=== PATIENT | female | born 1980 | race Caucasian/White ===

== ENCOUNTER 2022-01-03 10:29 | Emergency (ER) | payer MEDICAID, OTHER ==
[~2022-01-03] VITALS: Ht 157.5 cm; Wt 59.1 kg
[~2022-01-03 10:29] MED LIST: ACET-784 PO; DOXY50CA2 PO; METR250T PO
[2022-01-03 11:08] LABS: EOSINOPHILS % (AUTO) 1.6 % (1.0-6.0); HEMATOCRIT 38.9 % (36-46); HEMOGLOBIN 13.2 g/dL (12.0-16.0); LYMPHOCYTES # (AUTO) 1.7 K/uL (1.0-4.8); LYMPHOCYTES % (AUTO) 28.8 % (22.0-44.0); MEAN CORPUSCULAR HEMOGLOBIN 30.5 pg (26.0-34.0); MEAN CORPUSCULAR VOLUME 90 fL (80-100); MONOCYTES # (AUTO) 0.4 K/uL (0.1-1.0); MONOCYTES % (AUTO) 7.6 % (2.0-9.0); NEUTROPHILS # (AUTO) 3.6 K/uL (1.8-7.7); PLATELET COUNT (AUTO) 276 K/uL (150-450); RED BLOOD CELL COUNT(AUTO) 4.34 MIL/uL (4.00-5.20); RED CELL DISTRIBUTION WIDTH 12.9 % (11.5-14.5)
[2022-01-03 11:27] LABS: ANION GAP 10 mmol/L (8-16); CALCIUM, TOTAL 8.7 mg/dL (8.8-10.5); CARBON DIOXIDE 25 mmol/L (22-29); CHLORIDE 106 mmol/L (98-107); CREATININE 0.47 mg/dL (0.60-1.30); GLOMERULAR FILTR. RATE CALC > 60 mL/min (>60); GLUCOSE,RANDOM 92 mg/dL (70-110); SODIUM SERUM 141 mmol/L (136-145); UREA NITROGEN, BLOOD 10 mg/dL (7-18)
[2022-01-03] MEDS ORDERED: SODIUM CHLORIDE 0.9% 1,000 ML IV ONE (11:30)
[2022-01-03] MEDS ORDERED: ACETAMINOPHEN 325 MG TABLET PO ONE (11:30)
[2022-01-03] MEDS ORDERED: ONDANSETRON HCL 4 MG/2 ML VIAL IVP ONE (11:30)
[2022-01-03 11:35] LABS: ALANINE AMINOTRANSFERASE 16 U/L (12-78); ALBUMIN 3.8 g/dL (3.4-5.0); ALKALINE PHOSPHATASE 58 U/L (46-116); ASPARTATE AMINOTRANSFERASE 14 U/L (15-37); HCG,QUANTITATIVE < 1 mIU/mL (0-6); LIPASE 65 U/L (73-393)
[2022-01-03] MEDS ORDERED: SODIUM CHLORIDE 0.9% 100 ML ONE (11:38)
[2022-01-03] MEDS ORDERED: IOHEXOL 350 MG/ML 75 ML VIAL ONE (11:38)
[2022-01-03 12:18] LABS: APPEARANCE,URINE HAZY (CLEAR); BILIRUBIN,URINE NEGATIVE (NEGATIVE); GLUCOSE, URINE (UA) NEGATIVE (NEGATIVE); KETONES,URINE NEGATIVE (NEGATIVE); LEUKOCYTE ESTERASE ,URINE NEGATIVE (NEGATIVE); NITRATE,URINE NEGATIVE (NEGATIVE); OCCULT BLOOD,URINE MODERATE (NEGATIVE); PH,URINE 6.5 (5.0-8.0); PROTEIN,URINE TRACE mg/dL (NEGATIVE); SPECIFIC GRAVITIY, URINE 1.022 (1.003-1.030); UROBILINOGEN,URINE <=1.0 mg/dL (<=1.0)
[2022-01-03 12:32] LABS: WBC,URINE None Seen /HPF (0-5)
[2022-01-03 12:33] LABS: BACTERIA,URINE Many /HPF (None Seen); SQUAMOUS EPITHELIAL CELL,UR Moderate /LPF (None Seen)
[2022-01-03 15:25] VITALS: BP 114/74
== END 2022-01-03 15:26 | disposition home or self-care (01) ==
LOC: EMS 10:29
DX: R10.32 Left lower quadrant pain (principal); R10.2 Pelvic and perineal pain; F12.10 Cannabis abuse, uncomplicated; E84.9 Cystic fibrosis, unspecified; Z90.710 Acquired absence of both cervix and uterus
CPT/HCPCS: 99285; 74177; 96374; 76856; 96361; 80053; 81001; 83690; 84702; 85025; 36415; 87086; J2405; Q9967; J7030; J7050

== ENCOUNTER 2024-08-22 21:59 | Emergency (ER) | payer MEDICAID ==
[~2024-08-22] VITALS: Ht 157.5 cm; Wt 51.4 kg
[~2024-08-22 21:59] MED LIST changes: -DOXY50CA2 PO; -METR250T PO
[2024-08-22 22:04] VITALS: BP 107/69; PULSE 84; RESP 20; TEMP 98.3; O2SAT 99
== END 2024-08-22 22:26 | disposition left against medical advice (07) ==
LOC: EMS 22:08
DX: R51.9 Headache, unspecified (principal); R00.2 Palpitations; R42 Dizziness and giddiness; Z53.21 Procedure and treatment not carried out due to patient leaving prior to being seen by health care provider